=== PATIENT | female | born 1985 | race Caucasian/White ===

== ENCOUNTER 2017-09-02 11:17 | Emergency (ER) | payer OTHER ==
[~2017-09-02] VITALS: Ht 165.1 cm; Wt 81.7 kg
[~2017-09-02 11:17] MED LIST: ACETAMINOPHEN-1 EAC1 PO; AMOX TR-K CLV1 EAC3 PO; ARMOUR THYROID120 M1 PO; BACTRIM DS TAB1 EACH PO; BENTYL 10 MG CA10 M1 PO; CIPRO500 M1 PO; CLONAZEPAM 1 MG1 M1 PO; DARVOCET-N 1001 EACH PO; DURAGESIC25 MCG/HR TRANSDERM; IBUPROFEN 800800 M1 PO; LEVOTHYROXIN0.125 M1 PO; MACROBID 100 M100 M1 PO; NEURONTIN600 MG PO; NOHOMEMEDICATIONS; NORCO 5-325 TA1 EAC1 PO; NORCO 5-325 TA1 EACH PO; NUVARING VAGIN1 EACH; OMEPRAZOLE40 MG PO; PERCOCET 5-3251 EACH PO; PRAVASTATIN SOD10 MG PO; PREVIFEM1 EACH PO; PROZAC20 MG PO; TOPAMAX 25 MG T25 M1; TRAZODONE HCL100 MG PO; VITAMIN D400 UNIT PO; XANAX1 MG PO; ZOFRAN ODT4 MG PO; ZOFRAN ODT4 MG SUBLING
[2017-09-02] MEDS ORDERED: XANAX1 MG PO (11:41)
[2017-09-02 12:17] LABS: ABSOLUTE LYMPHOCYTES 2.2 thou/uL (0.8-5.3); ABSOLUTE MONOCYTES 0.4 thou/uL (0.0-1.2); ABSOLUTE NEUTROPHILS 9.1 thou/uL (1.6-8.1); BASOPHILS 0.3 %; HEMATOCRIT 43.5 % (37.0-47.0); LYMPHOCYTES 18.8 %; MCH 32.8 pg (26.0-34.0); MCHC 34.4 g/dL (28.0-37.0); MCV 95.3 fL (80.0-100.0); MONOCYTES 3.7 %; MPV 8.6 fl. (7.2-11.1); NUCLEATED RBCS 0 /100WBC; PLATELET COUNT* 287 thou/uL (150-400); POLYS 77.2 %; RBC 4.57 mil/uL (4.20-5.00); RDW-CV 12.8 % (10.5-14.5); WBC 11.8 thou/uL (4.0-11.0)
[2017-09-02 12:24] LABS: CALCIUM 9.5 mg/dL (8.5-10.1); CREATININE 0.7 mg/dL (0.6-1.3); POTASSIUM 3.2 mmol/L (3.5-5.1)
[2017-09-02 12:29] LABS: ALBUMIN 4.4 g/dL (3.4-5.0); TOTAL BILIRUBIN 0.5 mg/dL (<0.1-1.0); TOTAL PROTEIN 8.5 g/dL (6.4-8.2)
[2017-09-02 14:02] LABS: URINE BILIRUBIN NEGATIVE (Negative); URINE BLOOD 3+ (Negative); URINE COLOR YELLOW; URINE GLUCOSE-RANDOM NEGATIVE (Negative); URINE LEUKOCYTES-REFLEX 1+ (Negative); URINE PROTEIN 1+ (Negative); URINE SPECIFIC GRAVITY >= 1.030 (1.005-1.030); URINE UROBILINOGEN 0.2 E.U./dl (0.2-1.0)
[2017-09-02 14:04] LABS: URINE KETONES 3+ (Negative); URINE NITRITE-REFLEX POSITIVE (Negative)
[2017-09-02 14:06] LABS: URINE CLARITY HAZY; URINE REDUCING SUBSTANCE NEGATIVE (Negative)
[2017-09-02 14:13] LABS: BACTERIA-REFLEX >30 Many /HPF (None Seen); CASTS None Seen /LPF (None Seen); CRYSTALS None Seen /LPF (None Seen); SQUAMOUS >10 Many /LPF (0-3); URINE RBC 3-10 Few /HPF (0-2)
[2017-09-02] MEDS ORDERED: PROMS25 WY RECTAL (14:43)
[2017-09-02] MEDS ORDERED: ZOFRAN ODT4 MG PO (14:43)
[2017-09-02] MEDS ORDERED: BACTRIM DS TAB1 EACH PO (14:43)
[2017-09-02] MEDS ORDERED: HYDROCODONE-AP1 EAC6 PO (14:43)
[2017-09-02 14:56] LABS: AMP/METHAMP Negative (Negative); BARBITURATES Negative (Negative); BENZODIAZEPINES POSITIVE (Negative); COCAINE Negative (Negative); METHADONE Negative (Negative); OPIATES Negative (Negative); PCP Negative (Negative); THC POSITIVE (Negative)
[2017-09-02 15:33] VITALS: BP 143/86
== END 2017-09-02 15:33 | disposition home or self-care (01) ==
LOC: M.ERS 11:17
PROVIDERS: Physician Assistant
DX: N39.0 Urinary tract infection, site not specified (principal); E06.3 Autoimmune thyroiditis; G43.909 Migraine, unspecified, not intractable, without status migrainosus; N80.9 Endometriosis, unspecified; G89.29 Other chronic pain; F17.210 Nicotine dependence, cigarettes, uncomplicated; Z87.442 Personal history of urinary calculi; Z86.718 Personal history of other venous thrombosis and embolism